=== PATIENT | male | born 1970 | race Caucasian/White ===

== ENCOUNTER 2017-03-03 11:32 | Inpatient (IN) | payer OTHER ==
[2017-03-03 12:12] VITALS: BMI 22.3
--- NOTE | 2017-03-03 14:24 | HP ---
CIWA Score - CIWA Score Nausea/Vomitin-Mild Nausea/No Vomiting Muscle Tremors: 4-Moderate,w/Arms Extend Anxiety: 3 Agitation: 4-Moderately Restless Paroxysmal Sweats: 3 Orientation: 0-Oriented Tacttile Disturbances: 0-None Auditory Disturbances: 0-None Visual Disturbances: 0-None Headache: 2-Mild CIWA-Ar Total Score: 17 Admission ROS BHS - HPI Chief Complaint: I am here to detox. Allergies/Adverse Reactions: Allergies Allergy/AdvReac Type Severity Reaction Status Date / Time No Known Allergies Allergy Verified 03/03/17 13:49 History of Present Illness: pt is a 46yr old male with a history of alcohol dependence seeking detox for treatment. This is my first here. Last detox was 10yrs ago. Exam Limitations: No Limitations - Ebola screening Have you traveled outside of the country in the last 21 days: No Have you had contact with anyone from an Ebola affected area: No Have you been sick,other than usual withdrawal symptoms: No Do you have a fever: No - Review of Systems Constitutional: Chills, Diaphoresis, Loss of Appetite, Night Sweats, Changes in sleep EENT: reports: Tearing, Nose Congestion Respiratory: reports: Cough Cardiac: reports: Lightheadedness GI: reports: Diarrhea, Nausea, Poor Appetite, Poor Fluid Intake, Indigestion : reports: No Symptoms Reported Musculoskeletal: reports: No Symptoms Reported Integumentary: reports: Flushing, Rash (on back), Sweating Neuro: reports: Headache, Tingling, Tremors Endocrine: reports: Excessive Sweating, Flushing, Intolerance to Cold, Intolerance to Heat Hematology: reports: No Symptoms Reported Psychiatric: reports: Judgement Intact, Mood/Affect Appropiate, Orientated x3, Agitated, Anxious Other Systems: Reviewed and Negative Patient History - Patient Medical History Hx Anemia: No Hx Asthma: No Hx Chronic Obstructive Pulmonary Disease (COPD): No Hx Cancer: No Hx Cardiac Disorders: No Hx Congestive Heart Failure: No Hx Hypertension: No Hx Hypercholesterolemia: No Hx Pacemaker: No HX Cerebrovascular Accident: No Hx Seizures: No Hx Dementia: No Hx Diabetes: No Hx Gastrointestinal Disorders: No Hx Liver Disease: No Hx Genitourinary Disorders: No Hx Sexually Transmitted Disorders: No Hx Renal Disease (ESRD): No Hx Thyroid Disease: No Hx Human Immunodeficiency Virus (HIV): No (negative) Hx Hepatitis C: No (negative) Hx Depression: Yes Hx Suicide Attempt: No (denies) Hx Bipolar Disorder: No Hx Schizophrenia: No - Patient Surgical History Past Surgical History: No Hx Neurologic Surgery: No Hx Cataract Extraction: No Hx Cardiac Surgery: No Hx Lung Surgery: No Hx Breast Surgery: No Hx Breast Biopsy: No Hx Abdominal Surgery: No Hx Appendectomy: No Hx Cholecystectomy: No Hx Genitourinary Surgery: No Hx Section: No Hx Orthopedic Surgery: No Anesthesia Reaction: No - PPD History Previous Implant?: Yes Documented Results: Negative w/o proof Implanted On Prior [facility] Admission?: No PPD to be Administered?: Yes - Reproductive History Patient is a Female of Child Bearing Age (11 -55 yrs old): No - Smoking Cessation Smoking history: Current every day smoker Have you smoked in the past 12 months: Yes Aproximately how many cigarettes per day: 10 Hx Chewing Tobacco Use: No Initiated information on smoking cessation: Yes 'Breaking Loose' booklet given: 03/03/17 - Substance & Tx. History Hx Alcohol Use: Yes Hx Substance Use: No Substance Use Type: Alcohol Hx Substance Use Treatment: Yes (last detox 10yrs ago) - Substances Abused Alcohol-beer Route: Oral Frequency: Daily Amount used: 4-5 6 pks beer Age of first use: 15 Date of Last Use: 03/03/17 Family Disease History - Family Disease History Family History: Denies Admission Physical Exam BHS - Vital Signs Vital Signs: Vital Signs - 24 hr 03/03/17 12:10 Temperature 98 F Pulse Rate 80 Respiratory 20 Rate Blood Pressure 128/75 - Physical General Appearance: Yes: Appropriately Dressed, Moderate Distress, Tremorous, Irritable, Sweating, Anxious HEENTM: Yes: Hearing grossly Normal, Nasal Congestion Respiratory: Yes: Lungs Clear, Normal Breath Sounds, No Respiratory Distress Neck: Yes: No masses,lesions,Nodules Breast: Yes: Within Normal Limits Cardiology: Yes: Regular Rhythm, Regular Rate, S1, S2 Abdominal: Yes: Normal Bowel Sounds, Non Tender, Soft Genitourinary: Yes: Within Normal Limits Back: Yes: Normal Inspection Musculoskeletal: Yes: full range of Motion Extremities: Yes: Normal Inspection, Tremors Neurological: Yes: Fully Oriented, Alert, Normal Response Integumentary: Yes: Normal Color, Diaphoresis Lymphatic: Yes: Within Normal Limits - Diagnostic (1) Alcohol dependence with uncomplicated withdrawal Current Visit: Yes Status: Chronic (2) Skin rash Current Visit: Yes Status: Acute (3) Nicotine dependence Current Visit: Yes Status: Chronic Qualifiers: Nicotine product type: cigarettes Substance use status: uncomplicated Qualified Code(s): F17.210 - Nicotine dependence, cigarettes, uncomplicated Cleared for Admission [facility] - Detox or Rehab [facility] Level of Care: Medically Managed Detox Regimen/Protocol: Librium S Breath Alcohol Content Breath Alcohol Content: 0.177 Urine Drug Screen - Results Drug Screen Negative: Yes
[2017-03-03] MEDS ORDERED: MAGNESIUM CITRATE 300 ML BOTTLE PO PRN (14:28)
[2017-03-03] MEDS ORDERED: NICOTINE POLACRILEX 4 MG GUM BUC PRN (14:28)
[2017-03-03] MEDS ORDERED: P-EPHED 60MG/TRIPROLIDI 2.5MG TABLET PO PRN (14:28)
[2017-03-03] MEDS ORDERED: MAGNESIUM HYDROX 2400MG/30ML ORAL SUSPENSION 30 ML CUP PO PRN (14:28)
[2017-03-03] MEDS ORDERED: LOPERAMIDE HCL 2 MG CAPSULE PO PRN (14:28)
[2017-03-03] MEDS ORDERED: guaiFENesin/D-METHORPHAN HB 10 ML UNIT-DOSE CUPS PO PRN (14:28)
[2017-03-03] MEDS ORDERED: ACETAMINOPHEN 325 MG TABLET (FP) PO PRN (14:28)
[2017-03-03] MEDS ORDERED: MENTHOL/PHENOL 1 EACH UD MM PRN (14:28)
[2017-03-03] MEDS ORDERED: hydrOXYzine PAMOATE 50 MG CAPSULE (FP) PO PRN (14:28)
[2017-03-03] MEDS ORDERED: MAG HYDROX/AL HYDROX/SIMETH 30 ML UNIT-DOSE CUP PO PRN (14:28)
[2017-03-03] MEDS ORDERED: COLLOIDAL OATMEAL 1 BAR EACH TP PRN (14:30)
[2017-03-03] MEDS ORDERED: HYDROCORTISONE 1% TOPICAL CREAM 30 GM TUBE TP PRN (14:30)
[2017-03-03] MEDS ORDERED: chlordiazePOXIDE HCL 25 MG CAPSULE PO ONE (14:47)
[2017-03-03] MEDS: chlordiazePOXIDE HCL 25 MG CAPSULE PO SCH ×2 (17:47→22:30)
[2017-03-03] MEDS: chlordiazePOXIDE HCL 25 MG CAPSULE PO PRN (19:10)
[2017-03-03 19:31] LABS: URINE APPEARANCE CLEAR; URINE BILIRUBIN NEGATIVE (NEGATIVE); URINE BLOOD NEGATIVE (NEGATIVE); URINE COLOR LTYELLOW; URINE GLUCOSE (UA) NEGATIVE (NEGATIVE); URINE KETONE NEGATIVE (NEGATIVE); URINE LEUK ESTERASE NEGATIVE (NEGATIVE); URINE NITRITE NEGATIVE (NEGATIVE); URINE PROTEIN NEGATIVE (NEGATIVE); URINE UROBILINOGEN NEGATIVE mg/dL (0.2-1.0)
[2017-03-03] MEDS: THIAMINE HCL 100 MG TABLET (FP) PO SCH (22:30)
[2017-03-03] MEDS: diphenhydrAMINE HCL 50 MG CAPSULE PO PRN (22:31)
[2017-03-04] MEDS: chlordiazePOXIDE HCL 25 MG CAPSULE PO SCH ×4 (05:37→22:38)
[2017-03-04] MEDS: IBUPROFEN 400 MG TABLET (FP) PO PRN ×2 (05:39→17:51)
[2017-03-04] MEDS: chlordiazePOXIDE HCL 25 MG CAPSULE PO PRN ×2 (09:09→15:26)
--- NOTE | 2017-03-04 09:10 | CONSULT ---
[facility] Psychiatric Consult - Data Date of interview: 03/04/17 Admission source: [facility] Identifying data: This is 46 years old male with no psychiatric hospitalization history ontpxicated with: Alcohol and Nicotine Substance Abuse History: - Smoking Cessation. Smoking history: Current every day smoker. Have you smoked in the past 12 months: Yes. Aproximately how many cigarettes per day: 10. Hx Chewing Tobacco Use: No. Initiated information on smoking cessation: Yes. 'Breaking Loose' booklet given: 03/03/17. - Substance & Tx. History. Hx Alcohol Use: Yes. Hx Substance Use: No. Substance Use Type : Alcohol. Hx Substance Use Treatment: Yes (last detox 10yrs ago). - Substances Abused. Alcohol-beer. Route: Oral. Frequency: Daily. Amount used: 4-5 6 pks beer. Age of first use: 15. Date of Last Use: 03/03/17 Medical History: Denies any significant medical issues Psychiatric History: Denies Physical/Sexual Abuse/Trauma History: Denies, unclear Additional Comment: Observation. Detox Unit Care Protocol Mental Status Exam - Mental Status Exam Alert and Oriented to: Person Cognitive Function: Fair Patient Appearance: Unkempt Mood: Sad Affect: Flat Patient Behavior: Sedated Speech Pattern: Delayed Voice Loudness: Mildly Soft/Quiet Thought Process: Circumstantial Thought Disorder: Being Controlled Hallucinations: Denies Suicidal Ideation: Denies Homicidal Ideation: Denies Insight/Judgement: Fair Sleep: Difficulty falling asleep Appetite: Fair Muscle strength/Tone: Mild Hypotonicity Gait/Station: Shuffling Additional Comments: Observation. Detox Unit Care Protocol Psychiatric Findings - Problem List ([place] 1, 2,3) (1) Alcohol dependence with uncomplicated withdrawal Current Visit: Yes Status: Chronic (2) Nicotine dependence Current Visit: Yes Status: Chronic Qualifiers: Nicotine product type: cigarettes Substance use status: uncomplicated Qualified Code(s): F17.210 - Nicotine dependence, cigarettes, uncomplicated (3) Drug-induced mood disorder Current Visit: Yes Status: Suspected - Initial Treatment Plan Initial Treatment Plan: Observation. Detox Unit Care Protocol
[2017-03-04 10:17] LABS: MCH 31.4 pg (25.7-33.7); MCHC 33.3 g/dl (32.0-35.9); MEAN CELL VOLUME 94.2 fl (80-96); MEAN PLT VOLUME 8.6 fl (7.5-11.1); PLATELET COUNT 142 K/MM3 (134-434); RDW 13.2 % (11.9-15.9); WHITE BLOOD COUNT 3.8 K/mm3 (4.0-10.0)
[2017-03-04] MEDS: NICOTINE 21 MG/24 HOURS TOPICAL PATCH TD SCH (10:32)
[2017-03-04] MEDS: PRENATAL VITAMINS W/ FOLIC ACID TABLET (FP) PO SCH (10:32)
[2017-03-04 10:35] LABS: ALK PHOS 152 U/L (45-117); ANION GAP 7 (8-16); BILIRUBIN,TOTAL 0.5 mg/dL (0.2-1.0); CALCIUM 9.8 mg/dL (8.5-10.1); CO2 31 mmol/L (21-32); CREATININE 0.9 mg/dL (0.7-1.3); GLUCOSE,RANDOM 99 mg/dL (74-106); SGOT/AST 228 U/L (15-37); SGPT/ALT 234 U/L (12-78); TOT PROT 8.2 g/dl (6.4-8.2)
--- NOTE | 2017-03-04 12:01 | EKG ---
Test Reason : Blood Pressure : / mmHG Vent. Rate : 063 BPM Atrial Rate : 063 BPM P-R Int : 170 ms QRS Dur : 096 ms QT Int : 410 ms P-R-T Axes : 039 082 069 degrees QTc Int : 419 ms NORMAL SINUS RHYTHM NORMAL ECG NO PREVIOUS ECGS AVAILABLE Confirmed by NOHEMY SENIOR MD ([id number]) on 03/04/2017 12:01:28 PM Referred By: Confirmed By:NOHEMY SENIOR MD
--- NOTE | 2017-03-04 12:24 | PN ---
S CIWA - CIWA Score Nausea/Vomitin Muscle Tremors: 3 Anxiety: 3 Agitation: 3 Paroxysmal Sweats: 1-Minimal Palms Moist Orientation: 0-Oriented Tacttile Disturbances: 1-Very Mild Itch/Numbness Auditory Disturbances: 1-Very Mild Visual Disturbances: 1-Very Mild Sensitivity Headache: 2-Mild CIWA-Ar Total Score: 18 S Progress Note (SOAP) Subjective: ALERT,IRRITABLE,ANXIOUS,INTERRUPTED SLEEP,TREMOR Objective: 03/04/17 12:21 Vital Signs Temperature 98.1 F 03/04/17 10:00 Pulse Rate 93 H 03/04/17 10:00 Respiratory Rate 20 03/04/17 10:00 Blood Pressure 132/88 03/04/17 10:00 O2 Sat by Pulse Oximetry (%) EKG NSR,NORMAL ECG Laboratory Last Values WBC 3.8 K/mm3 (4.0-10.0) L 03/04/17 06:00 RBC 4.68 M/mm3 (4.00-5.60) 03/04/17 06:00 Hgb 14.7 GM/dL (11.7-16.9) 03/04/17 06:00 Hct 44.1 % (35.4-49) 03/04/17 06:00 MCV 94.2 fl (80-96) 03/04/17 06:00 MCH 31.4 pg (25.7-33.7) 03/04/17 06:00 MCHC 33.3 g/dl (32.0-35.9) 03/04/17 06:00 RDW 13.2 % (11.9-15.9) 03/04/17 06:00 Plt Count 142 K/MM3 (134-434) 03/04/17 06:00 MPV 8.6 fl (7.5-11.1) 03/04/17 06:00 Sodium 136 mmol/L (136-145) 03/04/17 06:00 Potassium 4.3 mmol/L (3.5-5.1) 03/04/17 06:00 Chloride 98 mmol/L (98-107) 03/04/17 06:00 Carbon Dioxide 31 mmol/L (21-32) 03/04/17 06:00 Anion Gap 7 (8-16) L 03/04/17 06:00 BUN 4 mg/dL (7-18) L 03/04/17 06:00 Creatinine 0.9 mg/dL (0.7-1.3) 03/04/17 06:00 Creat Clearance w eGFR > 60 (>60) 03/04/17 06:00 Random Glucose 99 mg/dL (74-106) 03/04/17 06:00 Calcium 9.8 mg/dL (8.5-10.1) 03/04/17 06:00 Total Bilirubin 0.5 mg/dL (0.2-1.0) 03/04/17 06:00 AST 228 U/L (15-37) H 03/04/17 06:00 ALT 234 U/L (12-78) H 03/04/17 06:00 Alkaline Phosphatase 152 U/L (45-117) H 03/04/17 06:00 Total Protein 8.2 g/dl (6.4-8.2) 03/04/17 06:00 Albumin 4.0 g/dl (3.4-5.0) 03/04/17 06:00 Urine Color Ltyellow 03/03/17 18:00 Urine Appearance Clear 03/03/17 18:00 Urine pH 6.0 (5.0-8.0) 03/03/17 18:00 Ur Specific [place] 1.010 (1.005-1.025) 03/03/17 18:00 Urine Protein Negative (NEGATIVE) 03/03/17 18:00 Urine Glucose (UA) Negative (NEGATIVE) 03/03/17 18:00 Urine Ketones Negative (NEGATIVE) 03/03/17 18:00 Urine Blood Negative (NEGATIVE) 03/03/17 18:00 Urine Nitrite Negative (NEGATIVE) 03/03/17 18:00 Urine Bilirubin Negative (NEGATIVE) 03/03/17 18:00 Urine Urobilinogen Negative mg/dL (0.2-1.0) 03/03/17 18:00 Ur Leukocyte Esterase Negative (NEGATIVE) 03/03/17 18:00 RPR Titer Nonreactive (NONREACTIVE) 03/04/17 06:00 Assessment: 03/04/17 12:23 WITHDRAWAL SYMPTOM Plan: CONTINUE DETOX,REPEAT CMP,INR IN AM,D/C TYLENOL
[2017-03-04] MEDS: THIAMINE HCL 100 MG TABLET (FP) PO SCH (22:38)
[2017-03-04] MEDS: diphenhydrAMINE HCL 50 MG CAPSULE PO PRN (22:38)
[2017-03-05] MEDS: chlordiazePOXIDE HCL 25 MG CAPSULE PO SCH ×2 (05:21→10:36)
[2017-03-05 10:20] LABS: ALBUMIN 3.4 g/dl (3.4-5.0); ALK PHOS 119 U/L (45-117); ANION GAP 5 (8-16); CALCIUM 9.5 mg/dL (8.5-10.1); CO2 33 mmol/L (21-32); CREATININE 0.8 mg/dL (0.7-1.3); GLUCOSE,RANDOM 87 mg/dL (74-106); SGOT/AST 138 U/L (15-37); SGPT/ALT 165 U/L (12-78); TOT PROT 6.9 g/dl (6.4-8.2)
[2017-03-05 10:26] LABS: INR 0.94 (0.82-1.09); PROTHROMBIN TIME (PATIENT) 10.3 SEC (9.98-11.88)
[2017-03-05] MEDS: NICOTINE 21 MG/24 HOURS TOPICAL PATCH TD SCH (10:36)
[2017-03-05] MEDS: PRENATAL VITAMINS W/ FOLIC ACID TABLET (FP) PO SCH (10:36)
--- NOTE | 2017-03-05 11:01 | PN ---
S CIWA - CIWA Score Nausea/Vomitin Muscle Tremors: 3 Anxiety: 3 Agitation: 3 Paroxysmal Sweats: 1-Minimal Palms Moist Orientation: 0-Oriented Tacttile Disturbances: 1-Very Mild Itch/Numbness Auditory Disturbances: 1-Very Mild Visual Disturbances: 1-Very Mild Sensitivity Headache: 2-Mild CIWA-Ar Total Score: 18 BHS Progress Note (SOAP) Subjective: ALERT,IRRITABLE,ANXIOUS,TREMOR,INTERRUPTED SLEEP Objective: 03/05/17 10:59 Vital Signs Temperature 96.1 F L 03/05/17 10:00 Pulse Rate 89 03/05/17 10:00 Respiratory Rate 18 03/05/17 10:00 Blood Pressure 118/77 03/05/17 10:00 O2 Sat by Pulse Oximetry (%) Abnormal Lab Results 03/05/17 07:00 Carbon Dioxide 33 H Anion Gap 5 L AST 138 H D ALT 165 H D Alkaline Phosphatase 119 H D Assessment: 03/05/17 11:00 WITHDRAWAL SYMPTOM Plan: CONTINUE DETOX
[2017-03-05] MEDS: chlordiazePOXIDE HCL 25 MG CAPSULE PO PRN (13:03)
[2017-03-05] MEDS: chlordiazePOXIDE 5 MG CAPSULE PO SCH ×2 (18:00→22:30)
[2017-03-05] MEDS: diphenhydrAMINE HCL 50 MG CAPSULE PO PRN (22:30)
[2017-03-05] MEDS: THIAMINE HCL 100 MG TABLET (FP) PO SCH (22:30)
[2017-03-06] MEDS: chlordiazePOXIDE 5 MG CAPSULE PO SCH ×2 (06:05→10:27)
[2017-03-06] MEDS: PRENATAL VITAMINS W/ FOLIC ACID TABLET (FP) PO SCH (10:26)
[2017-03-06] MEDS: NICOTINE 21 MG/24 HOURS TOPICAL PATCH TD SCH (10:27)
[2017-03-06] MEDS: IBUPROFEN 400 MG TABLET (FP) PO PRN (10:29)
--- NOTE | 2017-03-06 17:20 | PN ---
BHS Progress Note (SOAP) Subjective: Sweating,interrupted sleep,restless Objective: 03/06/17 17:20 Vital Signs - 8 hr 03/06/17 03/06/17 09:46 14:10 Temperature 98.2 F 98.2 F Pulse Rate 89 72 Respiratory 18 18 Rate Blood Pressure 142/85 137/80 Laboratory Last Values WBC 3.8 K/mm3 (4.0-10.0) L 03/04/17 06:00 RBC 4.68 M/mm3 (4.00-5.60) 03/04/17 06:00 Hgb 14.7 GM/dL (11.7-16.9) 03/04/17 06:00 Hct 44.1 % (35.4-49) 03/04/17 06:00 MCV 94.2 fl (80-96) 03/04/17 06:00 MCH 31.4 pg (25.7-33.7) 03/04/17 06:00 MCHC 33.3 g/dl (32.0-35.9) 03/04/17 06:00 RDW 13.2 % (11.9-15.9) 03/04/17 06:00 Plt Count 142 K/MM3 (134-434) 03/04/17 06:00 MPV 8.6 fl (7.5-11.1) 03/04/17 06:00 INR 0.94 (0.82-1.09) 03/05/17 07:00 Sodium 140 mmol/L (136-145) 03/05/17 07:00 Potassium 4.2 mmol/L (3.5-5.1) 03/05/17 07:00 Chloride 102 mmol/L (98-107) 03/05/17 07:00 Carbon Dioxide 33 mmol/L (21-32) H 03/05/17 07:00 Anion Gap 5 (8-16) L 03/05/17 07:00 BUN 8 mg/dL (7-18) D 03/05/17 07:00 Creatinine 0.8 mg/dL (0.7-1.3) 03/05/17 07:00 Creat Clearance w eGFR > 60 (>60) 03/05/17 07:00 Random Glucose 87 mg/dL (74-106) 03/05/17 07:00 Calcium 9.5 mg/dL (8.5-10.1) 03/05/17 07:00 Total Bilirubin 1.0 mg/dL (0.2-1.0) D 03/05/17 07:00 AST 138 U/L (15-37) H D 03/05/17 07:00 ALT 165 U/L (12-78) H D 03/05/17 07:00 Alkaline Phosphatase 119 U/L (45-117) H D 03/05/17 07:00 Total Protein 6.9 g/dl (6.4-8.2) 03/05/17 07:00 Albumin 3.4 g/dl (3.4-5.0) 03/05/17 07:00 Urine Color Ltyellow 03/03/17 18:00 Urine Appearance Clear 03/03/17 18:00 Urine pH 6.0 (5.0-8.0) 03/03/17 18:00 Ur Specific [place] 1.010 (1.005-1.025) 03/03/17 18:00 Urine Protein Negative (NEGATIVE) 03/03/17 18:00 Urine Glucose (UA) Negative (NEGATIVE) 03/03/17 18:00 Urine Ketones Negative (NEGATIVE) 03/03/17 18:00 Urine Blood Negative (NEGATIVE) 03/03/17 18:00 Urine Nitrite Negative (NEGATIVE) 03/03/17 18:00 Urine Bilirubin Negative (NEGATIVE) 03/03/17 18:00 Urine Urobilinogen Negative mg/dL (0.2-1.0) 03/03/17 18:00 Ur Leukocyte Esterase Negative (NEGATIVE) 03/03/17 18:00 RPR Titer Nonreactive (NONREACTIVE) 03/04/17 06:00 labs noted Assessment: 03/06/17 17:20 Withdrawal sx. Plan: Continue detox
[2017-03-06] MEDS: chlordiazePOXIDE HCL 10 MG CAPSULE PO SCH ×2 (17:28→22:28)
[2017-03-06] MEDS: THIAMINE HCL 100 MG TABLET (FP) PO SCH (22:28)
[2017-03-06] MEDS: diphenhydrAMINE HCL 50 MG CAPSULE PO PRN (22:28)
[2017-03-07] MEDS: chlordiazePOXIDE HCL 10 MG CAPSULE PO SCH (06:08)
[2017-03-07 11:00] VITALS: BP 145/96; PULSE 92; TEMP 97.2
--- NOTE | 2017-03-07 13:45 | DS ---
[facility] Detox Discharge Summary Admission Date: 03/03/17 Discharge Date: 03/07/17 - History Present History: Alcohol Dependence Pertinent Past History: Denies - Physical Exam Results Vital Signs: Vital Signs Temperature 97.2 F L 03/07/17 10:00 Pulse Rate 92 H 03/07/17 10:00 Respiratory Rate 20 03/07/17 10:00 Blood Pressure 145/96 03/07/17 10:00 O2 Sat by Pulse Oximetry (%) Pertinent Admission Physical Exam Findings: Withdrawal sx. Laboratory Last Values WBC 3.8 K/mm3 (4.0-10.0) L 03/04/17 06:00 RBC 4.68 M/mm3 (4.00-5.60) 03/04/17 06:00 Hgb 14.7 GM/dL (11.7-16.9) 03/04/17 06:00 Hct 44.1 % (35.4-49) 03/04/17 06:00 MCV 94.2 fl (80-96) 03/04/17 06:00 MCH 31.4 pg (25.7-33.7) 03/04/17 06:00 MCHC 33.3 g/dl (32.0-35.9) 03/04/17 06:00 RDW 13.2 % (11.9-15.9) 03/04/17 06:00 Plt Count 142 K/MM3 (134-434) 03/04/17 06:00 MPV 8.6 fl (7.5-11.1) 03/04/17 06:00 INR 0.94 (0.82-1.09) 03/05/17 07:00 Sodium 140 mmol/L (136-145) 03/05/17 07:00 Potassium 4.2 mmol/L (3.5-5.1) 03/05/17 07:00 Chloride 102 mmol/L (98-107) 03/05/17 07:00 Carbon Dioxide 33 mmol/L (21-32) H 03/05/17 07:00 Anion Gap 5 (8-16) L 03/05/17 07:00 BUN 8 mg/dL (7-18) D 03/05/17 07:00 Creatinine 0.8 mg/dL (0.7-1.3) 03/05/17 07:00 Creat Clearance w eGFR > 60 (>60) 03/05/17 07:00 Random Glucose 87 mg/dL (74-106) 03/05/17 07:00 Calcium 9.5 mg/dL (8.5-10.1) 03/05/17 07:00 Total Bilirubin 1.0 mg/dL (0.2-1.0) D 03/05/17 07:00 AST 138 U/L (15-37) H D 03/05/17 07:00 ALT 165 U/L (12-78) H D 03/05/17 07:00 Alkaline Phosphatase 119 U/L (45-117) H D 03/05/17 07:00 Total Protein 6.9 g/dl (6.4-8.2) 03/05/17 07:00 Albumin 3.4 g/dl (3.4-5.0) 03/05/17 07:00 Urine Color Ltyellow 03/03/17 18:00 Urine Appearance Clear 03/03/17 18:00 Urine pH 6.0 (5.0-8.0) 03/03/17 18:00 Ur Specific [place] 1.010 (1.005-1.025) 03/03/17 18:00 Urine Protein Negative (NEGATIVE) 03/03/17 18:00 Urine Glucose (UA) Negative (NEGATIVE) 03/03/17 18:00 Urine Ketones Negative (NEGATIVE) 03/03/17 18:00 Urine Blood Negative (NEGATIVE) 03/03/17 18:00 Urine Nitrite Negative (NEGATIVE) 03/03/17 18:00 Urine Bilirubin Negative (NEGATIVE) 03/03/17 18:00 Urine Urobilinogen Negative mg/dL (0.2-1.0) 03/03/17 18:00 Ur Leukocyte Esterase Negative (NEGATIVE) 03/03/17 18:00 RPR Titer Nonreactive (NONREACTIVE) 03/04/17 06:00 labs noted - Treatment Hospital Course: Detox Protocol Followed, Detoxed Safely, Responded well, Discharged Condition Good, Rehab Referral Accepted Patient has Accepted a Rehab Referral to: IOP - Medication Discharge Medications: Ambulatory Orders NK [No Known Home Medication] 03/03/17 - Diagnosis (1) Alcohol dependence with uncomplicated withdrawal Status: Acute (2) Nicotine dependence Status: Acute Qualifiers: Nicotine product type: cigarettes Substance use status: uncomplicated Qualified Code(s): F17.210 - Nicotine dependence, cigarettes, uncomplicated (3) Drug-induced mood disorder Status: Suspected - AMA Did Patient Leave Against Medical Advice: No
== END 2017-03-07 10:12 | disposition home or self-care (01) | DRG 775 ==
LOC: YASAS 11:32 → Y6N 14:44
PROVIDERS: ADMIT Internal Medicine; ATTEND Internal Medicine
PROC: HZ2ZZZZ Detoxification Services for Substance Abuse Treatment (ICD-10-PCS; principal; 2017-03-07)
DX: F10.230 Alcohol dependence with withdrawal, uncomplicated (principal); F17.210 Nicotine dependence, cigarettes, uncomplicated; F19.21 Other psychoactive substance dependence, in remission; R21 Rash and other nonspecific skin eruption
CPT/HCPCS: 36415; 80053; 81003; 85027; 85610; 86593; 93005; 93010